=== PATIENT | female | born 1965 | race Caucasian/White ===

== ENCOUNTER 2021-02-26 13:40 | Emergency (ER) | payer OTHER ==
[~2021-02-26] VITALS: Ht 177.8 cm; Wt 111.1 kg
[2021-02-26] MEDS ORDERED: FORTAMET500 MG PO (14:17)
[2021-02-26] MEDS ORDERED: LISINOPRIL-HCT1 EACH PO (14:18)
[2021-02-26] MEDS ORDERED: GLIPIZIDE XL10 MG PO (14:18)
[2021-02-26] MEDS ORDERED: LANTUS100 UNITS/ SUB-Q (14:19)
== END 2021-02-26 16:52 | disposition home or self-care (01) ==
LOC: ED 13:40
DX: R10.32 Left lower quadrant pain (principal); E11.9 Type 2 diabetes mellitus without complications; I10 Essential (primary) hypertension; Z87.891 Personal history of nicotine dependence; Z88.5 Allergy status to narcotic agent; Z79.4 Long term (current) use of insulin; Z79.899 Other long term (current) drug therapy
CPT/HCPCS: 74177; 80053; 81001; 83690; 85025; 99284-25

== ENCOUNTER 2022-07-31 14:37 | Emergency (ER) | payer OTHER ==
[~2022-07-31] VITALS: Ht 177.8 cm; Wt 96.2 kg
[~2022-07-31 14:37] MED LIST: ALPHA LIPOIC A200 MG PO; BASAGLAR K100 UNIT/1; FORTAMET500 MG PO; GLIPIZIDE XL10 MG PO; L-ARGININE1000 MG PO; LANTUS100 UNITS/ SUB-Q; LISINOPRIL-HCT1 EACH PO; METAFOLBIC TAB1 EACH PO; METFORMIN HCL1000 M1 PO; MULTI-DAY PLUS1 EAC1 PO; PRAVASTATIN SOD20 MG PO; PRILOSEC2.5 MG PO; TRULICITY3 MG/0.5 M SQ; TURMERIC500 M2 PO; VITAMIN B122500 MCG PO; [UNRECOGNIZED DRUG - OTHER] PO
[2022-07-31] MEDS ORDERED: OMEPRAZOLE40 MG PO (15:29)
== END 2022-07-31 17:44 | disposition home or self-care (01) ==
LOC: ED 14:37
DX: K80.20 Calculus of gallbladder without cholecystitis without obstruction (principal); E11.9 Type 2 diabetes mellitus without complications; I10 Essential (primary) hypertension; Z87.891 Personal history of nicotine dependence; Z88.5 Allergy status to narcotic agent; Z79.899 Other long term (current) drug therapy; Z79.84 Long term (current) use of oral hypoglycemic drugs; Z79.4 Long term (current) use of insulin
CPT/HCPCS: 36415; 76705; 80053; 81001; 83690; 85025; 99284-25

== ENCOUNTER 2022-08-06 15:01 | Emergency (ER) | payer OTHER ==
[~2022-08-06] VITALS: Ht 177.8 cm; Wt 96.2 kg
[~2022-08-06 15:01] MED LIST changes: +OMEPRAZOLE40 MG PO
--- OUTSIDE RECORDS SUMMARY | 2022-08-06 15:12 | XMS ---
PreManage Notification: PATRICIA GOMEZ Security [employer] Events No recent Security Events currently on file CRITERIA MET - [facility] - 2 Visits in 30 Days CARE PROVIDERS There are no care providers on record at this time. Mayela has no Care Guidelines for this patient. [place] [facility] MO[facility] T[facility] NOTE: Visits indicate total known visits. ED/C VISIT TRACKING (12 MO.) 08/06/2022 15:[address] [facility] [place] TYPE: Emergency COMPLAINT: - RT KNEE INJURY 07/31/2022 14:[address] [facility] [place] TYPE: Emergency COMPLAINT: - UPPER ABD PAIN DIAGNOSES: - senior living (current) use of insulin - Calculus of gallbladder without cholecystitis without obstruction - Right upper quadrant pain - senior living (current) use of oral hypoglycemic drugs - Essential (primary) hypertension - Allergy status to narcotic agent - Type 2 diabetes mellitus without complications - Other local intermodal truck driver (current) drug therapy - Personal history of nicotine dependence INPATIENT VISIT TRACKING (12 MO.) No inpatient visits to display in this time frame [email or web address]
== END 2022-08-06 16:38 | disposition home or self-care (01) ==
LOC: ED 15:01
DX: S83.91XA Sprain of unspecified site of right knee, initial encounter (principal); X58.XXXA Exposure to other specified factors, initial encounter; E11.9 Type 2 diabetes mellitus without complications; I10 Essential (primary) hypertension; Z87.891 Personal history of nicotine dependence; Z88.5 Allergy status to narcotic agent; Z79.899 Other long term (current) drug therapy; Z79.84 Long term (current) use of oral hypoglycemic drugs; Z79.4 Long term (current) use of insulin
CPT/HCPCS: 73560; 99283-25

== ENCOUNTER 2022-10-26 10:18 | Emergency (ER) | payer BC, OTHER ==
[~2022-10-26] VITALS: Ht 177.8 cm; Wt 94.4 kg
--- NOTE | ~2022-10-26 | EKG ---
[facility] [address] [place], [place] [address] Draft EK completed, results pending confirmation PATIENT NAME: GODFREY GOMEZLou BAUER Electrocardiogram DATE OF : 65 PHYSICIAN: PRELIMINARY REPORT #: [id number] REPORT IS CONFIDENTIAL AND NOT TO BE RELEASED WITHOUT AUTHORIZATION
[2022-10-26] MEDS ORDERED: LISINOPRIL20 MG PO (10:30)
[2022-10-26] MEDS ORDERED: INSULIN GL100 UNIT/2 SUB-Q (10:32)
== END 2022-10-26 12:49 | disposition home or self-care (01) ==
LOC: ED 10:18
DX: R00.2 Palpitations (principal); R07.89 Other chest pain; E11.9 Type 2 diabetes mellitus without complications; I10 Essential (primary) hypertension; K21.9 Gastro-esophageal reflux disease without esophagitis; Z87.891 Personal history of nicotine dependence; Z88.5 Allergy status to narcotic agent; Z79.899 Other long term (current) drug therapy; Z79.4 Long term (current) use of insulin
CPT/HCPCS: 36415; 71045; 80048; 84484; 85025; 93005; 99285-25

== ENCOUNTER 2024-04-14 08:26 | Emergency (ER) | payer BC ==
[~2024-04-14] VITALS: Ht 177.8 cm; Wt 86.6 kg
[~2024-04-14 08:26] MED LIST changes: +INSULIN GL100 UNIT/2 SUB-Q; +LISINOPRIL20 MG PO
[2024-04-14] MEDS ORDERED: TETANUS-DIPHTHERIA TOXOIDS/PF 0.5 ML VIAL IM ONE (10:15)
[2024-04-14] MEDS ORDERED: ACETAMINOPHEN 325 MG TAB PO ONE (10:30)
[2024-04-14] MEDS ORDERED: DIPHTH,PERTUSS(ACELL),TET VAC 0.5 ML SYRINGE IM ONE (10:30)
[2024-04-14 10:48] VITALS: BP 141/87
== END 2024-04-14 10:48 | disposition home or self-care (01) ==
LOC: ED 08:26
DX: S40.022A Contusion of left upper arm, initial encounter (principal); S50.812A Abrasion of left forearm, initial encounter; W10.9XXA Fall (on) (from) unspecified stairs and steps, initial encounter
CPT/HCPCS: 73060; 73080; 90471; 90715; 99283-25; A9270